=== PATIENT | female | born 1935 | race African-American/Black ===

== ENCOUNTER 2019-07-13 15:32 | Emergency (ER) | payer BC, OTHER ==
[~2019-07-13] VITALS: Ht 160 cm; Wt 49.9 kg
--- NOTE | 2019-07-13 15:54 | NUR ---
ED Nurse Note: Pt brought in by ambulance from grocery store d/t mechanical fall. Pt c/o back, legs, and neck pain. Pt reports a sign falling on top of her which then caused her to fall backwards into a wall of groceries. Respirations even and unlabored on room air. Vitals stable. Pt denies head injury, loss of consciousness, or n/v.
[2019-07-13 15:56] VITALS: BP 142/79
--- NOTE | 2019-07-13 16:28 | NUR ---
ED Nurse Note: Pt in radiology
--- NOTE | 2019-07-13 16:50 | NUR ---
ED Nurse Note: Pt back from radiology
--- NOTE | 2019-07-13 16:50 | Diagnostic Imaging Report ---
Indication: Headache Technique: Contiguous 5 mm thick transaxial imaging of the head obtained in a Siemens Sensation [address] scanner. Soft tissue and bone windows generated. Automatic Exposure Control was utilized. Total Dose length Product (DLP): 1125.7mGycm CT Dose Index Volume (CTDIvol): 53.4 mGy Comparison: none Findings: Mild, nonspecific, white matter hypoattenuation is noted throughout the brain consistent with chronic small vessel disease. There is no midline shift, edema, acute hemorrhage, mass effect, or abnormal extra-axial fluid collections. Bones and extra osseous soft tissues are unremarkable. Impression: No acute intracranial bleed, mass effect or edema. Nonspecific white matter hypoattenuation probably due to chronic small vessel disease. [facility] has communicated the preliminary results to the Emergency Department. Their findings are largely concordant with this report. The CT scanner at [facility] is accredited by the [employer] and the scans are performed using dose optimization techniques as appropriate to a performed exam including Automatic Exposure control.
--- NOTE | 2019-07-13 16:53 | Emergency Room Report ---
History of Present Illness General Chief Complaint: Multiple Trauma/Fall Source: EMS Present Illness HPI 83-year-old female presents to the emergency department complaining of 5 out of 10 severity pain to the posterior aspect of the head, the neck on the left side as well as the mid upper back x2 hours. Patient status post allegedly mechanical fall while waiting in line at a grocery store outside. Patient describes a large metal advertisement sign that blew over due to the wind and pushed her up against the brick wall. Patient states after striking the wall she slid down the wall along her back and ended up on the ground. Patient denies loss of consciousness. She denies taking blood thinning medications. She denies nausea or vomiting. Patient reports one episode of dizziness while at home. Denies numbness tingling or loss of sensation or gross motor movements of the extremities, incontinence of bowel or bladder. Denies CP, Palpitations, LOC, AMS, Changes in Vision, weakness or a sudden severe headache. Allergies: Coded Allergies: No Known Allergies (Unverified , 07/13/19) COVID-19 Screening Contact w/high risk pt: No Recent Travel to affected area: No Experienced COVID-19 symptoms?: No Patient History Past Medical History: see triage record Past Surgical History: none Pertinent Family History: none Now: No Reviewed Nursing Documentation: PMH: Agreed; PSxH: Agreed Nursing Documentation-PMH Past Medical History: No Stated History Review of Systems All Other Systems: negative except mentioned in HPI Physical Exam Vital Signs Date Time Temp Pulse Resp B/P (MAP) Pulse Ox O2 Delivery O2 Flow Rate FiO2 07/13/19 15:34 98.1 101 18 144/72 (96) 100 Room Air Sp02 EP Interpretation: reviewed, normal General Appearance: no apparent distress, alert, GCS 15, non-toxic Head: normocephalic, atraumatic Eyes: bilateral eye normal inspection, bilateral eye PERRL ENT: hearing grossly normal, normal voice Neck: full range of motion, no bony tend, tender lateral - left lateral muscular/st, no midline ttp Respiratory: chest non-tender, lungs clear, normal breath sounds, no respiratory distress, no wheezing, speaking full sentences Cardiovascular #1: regular rate, rhythm Gastrointestinal: non tender, soft Musculoskeletal: normal range of motion, gait/station normal, tender - midline T-spine TTP. , TTP to the posterior occipital scalp area. Neurologic: alert, motor strength/tone normal, oriented x3, sensory intact, responsive, speech normal Psychiatric: judgement/insight normal Skin: normal color, normal inspection Medical Decision Making ISABELLA Attestation Dr. Orozco is my supervising Physician whom patient management has been discussed with. Diagnostic Impression: Primary Impression: Contusion of head Qualified Codes: S00.83XA - Contusion of other part of head, initial encounter Additional Impressions: Contusion of back Qualified Codes: S20.229A - Contusion of unspecified back wall of thorax, initial encounter Multinodular thyroid ER Course 83-year-old female presents to the emergency department complaining of 5 out of 10 severity pain to the posterior aspect of the head, the neck on the left side as well as the mid upper back x2 hours. Patient status post allegedly mechanical fall while waiting in line at a grocery store outside. Patient describes a large metal advertisement sign that blew over due to the wind and pushed her up against the brick wall. Patient states after striking the wall she slid down the wall along her back and ended up on the ground. Patient denies loss of consciousness. She denies taking blood thinning medications. She denies nausea or vomiting. Patient reports one episode of dizziness while at home. Denies numbness tingling or loss of sensation or gross motor movements of the extremities, incontinence of bowel or bladder. Denies CP, Palpitations, LOC, AMS, Changes in Vision, weakness or a sudden severe headache. Ddx considered but are not limited to Fracture, dislocation, contusion, Sprain/ Strain/Spasm, acute head injury, subarachnoid hemorrhage, subdural hematoma just to name a few. Vital signs: are WNL, pt. is afebrile H&PE are most consistent with musculoskeletal injury will perform imaging to r/ o fractures/dislocations. ORDERS: -CT imaging of the head, C-spine and T-spine without contrast - negative for fx, Dislocation, or significant soft tissue injury, per preliminary read in ED, and signed by ISABELLA Babcock, my supervising physician has reviewed, and agrees with my interpretation. ED INTERVENTIONS: -Pt. declined Tylenol DISCHARGE: At this time pt. is stable for d/c to home. Will provide printed patient care instructions, and any necessary prescriptions. Care plan and follow up instructions have been discussed with the patient prior to discharge. CT/MRI/US Diagnostic Results CT/MRI/US Diagnostic Results #1: Imaging Test Ordered: CT HEAD No Contrast Impression " NO acute bleed or skull fx. " Per official radiology report- Please see report for specific details. CT/MRI/US Diagnostic Results #2: Imaging Test Ordered: CT C-SPINE No Contrast Impression " No fx's or d/l's. Some visible cervical straightening. Some degenerative chronic changes. Incidental finding of thyroid nodules." Per official radiology report- Please see report for specific details. CT/MRI/US Diagnostic Results #3: Imaging Test Ordered: CT T-SPINE No Contrast Impression " No fractures or dislocations, some evidence of degenerative disease." Per official radiology report- Please see report for specific details. Last Vital Signs Date Time Temp Pulse Resp B/P (MAP) Pulse Ox O2 Delivery O2 Flow Rate FiO2 07/13/19 15:56 98 18 Room Air 07/13/19 15:56 98.1 142/79 100 Disposition: HOME, SELF-CARE Condition: Stable Scripts Lidocaine Patch* (Lidoderm Patch*) 1 Each Adh..patch 1 PATCH TOPIC DAILY, #30 PATCH 0 Refills Patch(es) may remain in place for up to 12 hours in any 24-hour period. Prov: Yesy Babcock 07/13/19 Acetaminophen* (TYLENOL EXTRA STRENGTH*) 500 Mg Tablet 500 MG ORAL Q6H, #30 TAB 0 Refills Prov: Yesy Babcock 07/13/19 Referrals: Brent Byrne [facility] Patient Instructions: Contusion, [id number], Thyroid Nodule Additional Instructions: Take medications as directed. *FOLLOW UP WITH YOUR DOCTOR REGARDING THE NODULES FOUND IN YOUR THYROID INCIDENTALLY ON CT SCAN Follow up with a Primary Care Provider in 3-5 days, even if your symptoms have resolved. --Please review list of primary care clinics, if you do not already have a primary care provider Return sooner to ED if new symptoms occur, or current symptoms become worse. - Please note that this Emergency Department Report was dictated using Viewsterauto inspector technology software, occasionally this can lead to erroneous entry secondary to interpretation by the dictation equipment. Yesy Babcock Jul 13, 2019 16:53
--- NOTE | 2019-07-13 17:06 | Diagnostic Imaging Report ---
Indication: Cervical trauma/pain. Technique: Continuous helical imaging of the cervical spine was obtained transaxially from the skull base to the upper thoracic spine. 2-D coronal and sagittal reformatted images were obtained. Automatic Exposure Control was utilized. Total Dose length Product (DLP): 301.[address] Dose Index Volume (CTDIvol): 10.1 mGy Comparison: None Findings: There is no acute fracture or malalignment identified. There is no soft tissue swelling identified. There is straightening of the cervical spine which may indicate muscle spasm. Mild uncovertebral arthritis is demonstrated at multiple levels. Some of the intervertebral discs show mild narrowing. Impression: No acute injury. Straightening of the cervical spine which may indicate muscle spasm Mild spondylosis [facility] has communicated the preliminary results to the Emergency Department. Their findings are largely concordant with this report. The CT scanner at [facility] is accredited by the [employer] and the scans are performed using dose optimization techniques as appropriate to a performed exam including Automatic Exposure control.
--- NOTE | 2019-07-13 17:09 | Diagnostic Imaging Report ---
Indication: Back pain and trauma Technique: Continuous helical transaxial imaging of the thoracic spine was obtained from the lung bases to the pubic symphysis. No IV contrast was administered. Coronal 2-D reformats were also obtained. Study obtained in a Siemens sensation [address] Total Dose length Product (DLP): [address] Dose Index Volume (CTDIvol): 10.1 mGy Comparison: None Findings: Bones are osteopenic. Alignment is normal. There is no acute fracture appreciated. Moderate degenerative changes noted with the multilevel loss of disc height and vertebral endplate enthesophytes at multiple levels. Multilevel facet arthropathy noted. There is a hemangioma noted at the T10 vertebra. Aorta is moderately calcified. Coronary calcifications also noted. The visualized lungs appear clear. IMPRESSION: No acute injury appreciated. Degenerative changes as described above T10 vertebral hemangioma Osteopenia. Arterial vascular disease The CT scanner at [facility] is accredited by the [employer] and the scans are performed using dose optimization techniques as appropriate to a performed exam including Automatic Exposure control.
[2019-07-13] MEDS ORDERED: LIDODERM700 M1 TOPIC (17:19)
[2019-07-13] MEDS ORDERED: TYLENOL EXTRA500 MG ORAL (17:19)
[2019-07-13 17:45] VITALS: BP 138/84
--- NOTE | 2019-07-13 17:45 | NUR ---
ER DISCHARGE NOTE: Patient is cleared to be discharged per ERMD, pt is aox4, on room air, with stable vital signs as documented. pt was given dc instructions, pt was able to verbalize understanding, pt id band removed. pt is able to ambulate with steady gait. pt took all belongings. Pt said she was going to call a taxi to go home.
== END 2019-07-13 17:45 | disposition home or self-care (01) ==
LOC: EDBD 15:32 → EMR 16:16
DX: S00.83XA Contusion of other part of head, initial encounter (principal); S20.229A Contusion of unspecified back wall of thorax, initial encounter; E04.2 Nontoxic multinodular goiter; W19.XXXA Unspecified fall, initial encounter; Y92.512 Supermarket, store or market as the place of occurrence of the external cause
CPT/HCPCS: 70450; 72125; 72128; 99284